=== PATIENT | female | born 1945 | race Caucasian/White ===

== ENCOUNTER → 2023-07-10 07:49 | Outpatient (CLI) | payer MEDICARE, SELFPAY ==
[2023-07-10 16:40] LABS: Basophils # 0.1 K/mm3 (0-0.2); Basophils % 0.6 % (0.1-2.0); Eosinophils # 0.1 K/mm3 (0.0-0.4); Eosinophils % 0.6 % (0.1-12.0); Hematocrit 43.9 % (37.0-47.0); Hemoglobin 14.1 g/dL (12.2-16.2); Lymphocytes # 1.5 K/mm3 (0.7-4.5); Lymphocytes % 18.1 % (10-50); Mean Corpuscular HGB Conc 32.1 g/dL (31.8-35.4); Mean Corpuscular Hemoglobin 30.8 pg (27.0-31.2); Mean Platelet Volume 8.1 fl (7.4-10.4); Monocytes # 0.4 K/mm3 (0.1-1.0); Monocytes % 4.4 % (1.7-9.3); Neutrophils # 6.2 K/mm3 (1.8-7.8); Neutrophils % 76.3 % (37.0-80.0); Platelet Count 309 K/mm3 (142-424); Red Blood Count 4.58 M/mm3 (4.20-5.40); Red Cell Distribution Width 13.8 % (11.5-17.5); White Blood Count 8.1 K/mm3 (4.8-10.8)
[2023-07-10 16:43] LABS: Alanine Aminotransferase 11 U/L (12-78); Albumin Level 3.8 g/dl (3.5-5.0); Albumin/Globulin Ratio 1.4 (1.1-1.8); Alkaline Phosphatase 59 U/L (38-126); Anion Gap 11.5 mEq/L (5-15); Aspartate Amino Transferase 25 U/L (14-36); Bilirubin,Total 0.6 mg/dl (0.2-1.3); Blood Urea Nitrogen 18 mg/dl (7-17); Calcium 8.2 mg/dl (8.4-10.2); Carbon Dioxide 29 mmol/L (22.0-30.0); Chloride 100 mmol/L (98-107); Chol/HDL Ratio 4.2 (1-3.5); Cholesterol 195 mg/dl (140-200); Estimated Glomerular Filt Rate 81 ml/min (>60); GFR (African American) 97 ML/MIN (>60); Globulin 2.8 g/dL (1.3-3.2); Glucose 100 mg/dl (74-100); HDL Cholesterol 46 mg/dl (40-60); Potassium 4.5 mmoL/L (3.5-5.1); Sodium 136 mmol/L (136-145); Total Protein,Serum 6.6 g/dl (6.3-8.2); Triglycerides 94 mg/dl (30-150); VLDL Cholesterol 19 mg/dL (0-40)
[2023-07-10 16:54] LABS: Direct LDL Cholesterol 107.48 mg/dL (100-129)
[2023-07-10 17:13] LABS: Thyroid Stimulating Hormone 1.68 uIU/mL (0.465-4.68)
== END ==
PROVIDERS: PCP Family Medicine; Visit Provider Family Medicine
DX: Z13.6 Encounter for screening for cardiovascular disorders (principal); R53.83 Other fatigue
CPT/HCPCS: 80053; 80061; 84443; 85025

== ENCOUNTER → 2023-08-09 12:14 | Outpatient (CLI) | payer MEDICARE, SELFPAY ==
--- NOTE | 2023-08-09 12:18 | XR_ITS ---
FINAL REPORT CLINICAL HISTORY: low back pain and sciatica FINDINGS: LUMBAR SPINE Three views demonstrate no acute fracture. The disc spaces are well preserved. There is lumbar scoliosis convex to the right measuring 25 degrees. There is mild anterior osteophyte formation. There is no malalignment. IMPRESSION: Degenerative and chronic appearing findings. Reviewed, Interpreted and Dictated by Arnold Hilliard MD Transcribed by Cecy Morales Authenticated and [facility]
--- NOTE | 2023-08-09 12:18 | XR_ITS ---
FINAL REPORT CLINICAL HISTORY: dyspnea FINDINGS: TWO-VIEW CHEST The heart size is normal. The mediastinum is normal. The lungs are clear. There is no pneumothorax. There is a moderate hiatal hernia. There is 30 degrees thoracolumbar scoliosis convex to the right. IMPRESSION: No acute cardiopulmonary process. Reviewed, Interpreted and Dictated by Arnold Hilliard MD Transcribed by Cecy Morales Authenticated and . [facility]
[2023-08-09 13:14] LABS: Basophils % 0.5 % (0.1-2.0); Eosinophils % 0.1 % (0.1-12.0); Hematocrit 44.5 % (37.0-47.0); Hemoglobin 14.7 g/dL (12.2-16.2); Lymphocytes # 1.2 K/mm3 (0.7-4.5); Lymphocytes % 12.6 % (10-50); Mean Corpuscular HGB Conc 32.9 g/dL (31.8-35.4); Mean Corpuscular Hemoglobin 30.3 pg (27.0-31.2); Mean Corpuscular Volume 92.1 fl (81-99); Mean Platelet Volume 7.5 fl (7.4-10.4); Monocytes # 0.3 K/mm3 (0.1-1.0); Monocytes % 3.5 % (1.7-9.3); Neutrophils # 7.9 K/mm3 (1.8-7.8); Neutrophils % 83.4 % (37.0-80.0); Platelet Count 297 K/mm3 (142-424); Red Blood Count 4.84 M/mm3 (4.20-5.40); Red Cell Distribution Width 13.8 % (11.5-17.5); White Blood Count 9.4 K/mm3 (4.8-10.8)
[2023-08-09 13:35] LABS: Anion Gap 14.5 mEq/L (5-15); Blood Urea Nitrogen 25 mg/dl (7-17); Calcium 8.9 mg/dl (8.4-10.2); Carbon Dioxide 24 mmol/L (22.0-30.0); Chloride 101 mmol/L (98-107); Estimated Glomerular Filt Rate 69 ml/min (>60); GFR (African American) 84 ML/MIN (>60); Glucose 104 mg/dl (74-100); Potassium 4.5 mmoL/L (3.5-5.1); Sodium 135 mmol/L (136-145)
[2023-08-09 14:05] LABS: Thyroid Stimulating Hormone 1.74 uIU/mL (0.465-4.68)
== END ==
LOC: LAB 12:15
PROVIDERS: PCP Family Medicine; Visit Provider Family Medicine
DX: M54.50 Low back pain, unspecified (principal); M79.606 Pain in leg, unspecified; R00.0 Tachycardia, unspecified
CPT/HCPCS: 36415; 71046; 72100; 80048; 84443; 85025

== ENCOUNTER → 2023-08-10 08:25 | Outpatient (CLI) | payer MEDICARE, SELFPAY | LOC: LAB.DROPOF 08-11 08:26 | PROVIDERS: PCP Family Medicine; Visit Provider Family Medicine | DX: R53.1 Weakness (principal) | CPT/HCPCS: 87086 ==

== ENCOUNTER 2023-08-20 14:35 | Emergency (ER) | payer MEDICARE, SELFPAY ==
[2023-08-20 14:40] VITALS: BP 207/106; PULSE 75; RESP 18; TEMP 36.7; O2SAT 97; BMI 20.2
--- NOTE | 2023-08-20 14:48 | CT_ITS ---
FINAL REPORT CLINICAL HISTORY: fall, hematoma r occiput, r/o intracranial FINDINGS: Axial images of the head were obtained without contrast. Coronal reformatted images were also obtained. This study was performed with techniques to keep radiation doses as low as reasonably achievable (ALARA). Individualized dose reduction techniques using automated exposure control or adjustment of mA and/or kV according to the patient''s size were employed. There is generalized age-appropriate atrophy. Periventricular low-attenuation areas are seen consistent with mild chronic ischemic changes. There is no evidence of intracranial hemorrhage or mass. There is no evidence of acute infarct. There is no evidence of shift of the midline structures. There is a right occipital scalp hematoma. No skull abnormality is seen on the bone window images. IMPRESSION: Atrophy and mild periventricular chronic ischemic changes. No acute intracranial abnormality identified. Reviewed, Interpreted and Dictated by Reed Thomas III, MD Transcribed by Yue Manuel Authenticated and [facility]
--- NOTE | 2023-08-20 14:48 | CT_ITS ---
PROCEDURE INFORMATION: Exam: CT Cervical Spine Without Contrast Exam date and time: 08/20/2023 3:33 PM Age: 78 years old Clinical indication: Injury or trauma; Fall; Blunt trauma; Additional info: Fall, R sided neck pain TECHNIQUE: Imaging protocol: Computed tomography of the cervical spine without contrast. Radiation optimization: All CT scans at this facility use at least one of these dose optimization techniques: automated exposure control; mA and/or kV adjustment per patient size (includes targeted exams where dose is matched to clinical indication); or iterative reconstruction. COMPARISON: 1. CT HEAD/BRAIN WO CON 08/20/2023 3:33 PM 2. CR XR CHEST 2V 08/09/2023 12:51 PM FINDINGS: Bones/joints: The cervical spine shows relatively significantly exaggerated lordosis without evidence for subluxation. However, age-related degenerative changes are observed, including mild disc space narrowing and osteophyte formation at multiple levels. These findings are consistent with age related degenerative disease. No underlying osseous injury is identified. Lungs: Calcified granulomas are noted at the right lung apex. Soft tissues: There is moderate soft tissue swelling over over the right occiput with a small locules subcutaneous gas. IMPRESSION: Multilevel degenerative change without acute injury identified.
--- NOTE | 2023-08-20 15:25 | ED_ITS ---
Discharge Plan Disposition Patient Disposition: Home, Self-Care Prescriptions Prescriptions: No Action duloxetine 60 mg capsule,delayed release(DR/EC) 60 mg PO DAILY gabapentin 600 mg tablet 600 mg PO QID Patient Comments: TAKE 1 TABLET BY MOUTH 4 TIMES DAILY Referrals Follow up/Referrals: Nate Espinosa MD [Primary Care Provider] - See instructions Activity Restrictions/Add. Instructions Additional Instructions/Restrictions: Please follow-up with your primary care provider. You will need to have your gosia removed in approximately 7 days. Monitor for signs of infection. Please return to the emergency department if you develop any new or worsening symptoms or become concerned for your health. Clinical Impressions Clinical Impression: Fall, Acute head trauma Discharge ED Provider: Mickey Wilcox General Adult HPI <Mickey Wilcox MD - Last Filed: 08/20/23 15:28> General Chief complaint: Fall Stated complaint: AO 08/20/23 FELL HIT HEAD Time Seen by Provider: 08/20/23 14:38 Mode of Arrival: Wheelchair Source of Information: Patient and Relative Limitations: No Limitations Description of Symptoms (Recalled from ER Triage Doc. by RN): Pt. states she fell backwards while making lunch today at her home. She hit her head on a jar that was on the ground. She states she did not lose consciousness. She called her daughter who came and got her and took her to her PCP and he sent her to the ED. History of Present Illness HPI narrative: 78-year-old female history of hypertension and neuropathy presenting with fall. Patient states that just for arrival, she fell after tripping and losing her balance, hit the back of her head. No loss of conscious patient having neck and back pain. No neurologic deficits. Has a large knot on the back of her head, but no other complaints other than pain at the site. No anticoagulation Related Data Home Medications Medication Instructions Recorded Confirmed duloxetine 60 mg capsule,delayed 60 mg PO DAILY neuropathy 11/20/22 08/20/23 release gabapentin 600 mg tablet 600 mg PO QID neuropathy 11/20/22 08/20/23 Allergies Allergy/AdvReac Type Severity Reaction Status Date / Time codeine AdvReac vomiting Verified 08/20/23 15:06 PFSH <Mickey Wilcox MD - Last Filed: 08/20/23 15:28> [facility] Disclaimer: The information contained in this section may have been updated after the patient was seen, as this information can be updated by other users. Medical History Neuropathy Surgical History History of ankle surgery Hx of cataract surgery Family History Mother Coronary artery disease Grandmother Cancer Social History Smoking Status: Never smoker alcohol intake: never substance use type: denies use current occupational status: retired Travel in the last 8 weeks: None household members: none <Mickey Wilcox MD - Last Filed: 08/20/23 15:28> ROS Obtained: Yes All systems reviewed & no additional complaints except as documented Physical Exam <Mickey Wilcox MD - Last Filed: 08/20/23 15:28> General General appearance: alert and in no apparent distress Head Head exam: normocephalic and other (Large 4 cm hematoma on posterior/right aspect of occiput. Hemostatic at this time.) Eye Eye exam: Present normal appearance, PERRL and EOMI ENT ENT exam: Present mucous membranes moist and other Neck Neck exam: Present normal inspection, full ROM, trachea midline and tenderness (On the right side of the neck and the muscles, no midline tenderness) Respiratory Respiratory exam: Absent respiratory distress, wheezes, stridor, accessory muscle use or prolonged expiratory phase Cardiovascular Cardiovascular exam: Present normal rhythm Abdominal Exam Abdominal exam: Present soft; Absent distention, tenderness, guarding, rebound or rigidity Extremities Exam Extremities exam: Absent edema Neurological Exam Neurological exam: Present alert, oriented X3, CN II-XII intact and normal gait; Absent motor sensory deficit Skin Skin exam: Present warm and dry; Absent diaphoresis or erythema Medical Decision Making <Mickey Wilcox MD - Last Filed: 08/20/23 15:28> Medical Records Medical records reviewed: Yes I reviewed the patient's medical records. Jamel Inquiry Pt receiving controlled substance: No Jamel was queried for this patient: No Vital Signs: 08/20/23 14:40 Temperature 98.1 F Temperature Source Oral Pulse Rate [Right Brachial] 75 Respiratory Rate 18 Blood Pressure [Right Arm] 207/106 H Blood Pressure Mean [Right Arm] 139 Blood Pressure Source [Right Arm] Automatic Cuff Blood Pressure Position [Right Arm] Sitting 02 Sat by Pulse Oximetry 97 Oxygen Delivery Method Room Air Orders (Tests/Meds): ED MEDICATIONS Discontinued Medications Generic Name Dose Route Start Last Admin Trade Name Isidro PRN Reason Stop Dose Admin Ketorolac Tromethamine 15 mg 08/20/23 15:25 08/20/23 15:40 Ketorolac 30mg/Ml Vial IV 08/20/23 15:26 15 mg ONCE ONE Administration Morphine Sulfate 4 mg 08/20/23 15:25 08/20/23 15:40 Morphine 4mg/Ml Syringe IV 08/20/23 15:26 4 mg ONCE ONE Administration Ondansetron HCl 4 mg 08/20/23 15:26 08/20/23 15:40 Ondansetron 4mg/2ml Vial IV 08/20/23 15:27 4 mg ONCE ONE Administration ORDERS Category Date Time Status CT cervical spine wo con Stat Cat Scan 08/20/23 14:[address] head/brain wo con Stat Cat Scan 08/20/23 14:48 Completed Medical Decision Narrative: 78-year-old female history of hypertension and neuropathy presenting with fall. Patient states that just for arrival, she fell after tripping and losing her balance, hit the back of her head. No loss of conscious patient having neck and back pain. No neurologic deficits. Has a large knot on the back of her head, but no other complaints other than pain at the site. No anticoagulatio. History was obtained via conversation with patient. On arrival, patient hemodynamically stable, alert, oriented x4, appropriate, GCS 15, moving all extremities spontaneously, pupils equal and reactive to light. Full physical exam performed and significant for well-appearing woman in no acute distress, but is complaining of pain. She has a large hematoma on the right posterior aspect of her occiput. No midline spinal tenderness, right- sided spinal tenderness. Cut is largely hemostatic. Differential includes hematoma, fracture, intracranial hemorrhage, cervical spine injury, among others. Patient was given morphine/Zofran, Toradol for symptomatic management and correction of underlying abnormalities. Patient head and neck CT imaging was pending at time of handoff to oncoming physician. <Mendoza Mary MD - Last Filed: 08/20/23 17:43> Vital Signs: 08/20/23 14:40 Temperature 98.1 F Temperature Source Oral Pulse Rate [Right Brachial] 75 Respiratory Rate 18 Blood Pressure [Right Arm] 207/106 H Blood Pressure Mean [Right Arm] 139 Blood Pressure Source [Right Arm] Automatic Cuff Blood Pressure Position [Right Arm] Sitting 02 Sat by Pulse Oximetry 97 Oxygen Delivery Method Room Air Orders (Tests/Meds): ED MEDICATIONS Discontinued Medications Generic Name Dose Route Start Last Admin Trade Name Isidro PRN Reason Stop Dose Admin Ketorolac Tromethamine 15 mg 08/20/23 15:25 08/20/23 15:40 Ketorolac 30mg/Ml Vial IV 08/20/23 15:26 15 mg ONCE ONE Administration Morphine Sulfate 4 mg 08/20/23 15:25 08/20/23 15:40 Morphine 4mg/Ml Syringe IV 08/20/23 15:26 4 mg ONCE ONE Administration Ondansetron HCl 4 mg 08/20/23 15:26 08/20/23 15:40 Ondansetron 4mg/2ml Vial IV 08/20/23 15:27 4 mg ONCE ONE Administration ORDERS Category Date Time Status CT cervical spine wo con Stat Cat Scan 08/20/23 14:[address] head/brain wo con Stat Cat Scan 08/20/23 14:48 Completed Medical Decision Narrative: 78-year-old female history of hypertension and neuropathy presenting with fall. Patient states that just for arrival, she fell after tripping and losing her balance, hit the back of her head. No loss of conscious patient having neck and back pain. No neurologic deficits. Has a large knot on the back of her head, but no other complaints other than pain at the site. No anticoagulatio. History was obtained via conversation with patient. On arrival, patient hemodynamically stable, alert, oriented x4, appropriate, GCS 15, moving all extremities spontaneously, pupils equal and reactive to light. Full physical exam performed and significant for well-appearing woman in no acute distress, but is complaining of pain. She has a large hematoma on the right posterior aspect of her occiput. No midline spinal tenderness, right- sided spinal tenderness. Cut is largely hemostatic. Differential includes hematoma, fracture, intracranial hemorrhage, cervical spine injury, among others. Patient was given morphine/Zofran, Toradol for symptomatic management and correction of underlying abnormalities. Patient head and neck CT imaging was pending at time of handoff to oncoming physician. Usman CORDOVA: I assumed care of the patient at the time of handoff from the prior provider. On reassessment patient's blood pressure spontaneously improved. Patient remains stable. CT scan interpreted by me, show no evidence of acute intracranial bleeding or trauma, no evidence of cervical fracture. Patient's wounds were copiously irrigated. Small laceration noted. [place] were placed. She was given return precautions and instructions regarding wound care. Patient discharged in stable condition. <Mendoza Mary MD - Last Filed: 08/20/23 17:43> Laceration Laceration 1: Site: scalp (occiput) Size (cm): 1.5 Description: linear Depth: simple, single layer Skin layer closed with: other (gosia, 3) Critical Care <Mickey Wilcox MD - Last Filed: 08/20/23 15:28> Critical Care Time Critical Care Time: No
[2023-08-20] MEDS: MORPHINE 4MG/ML SYRINGE 4 MG IV (15:40)
[2023-08-20] MEDS: KETOROLAC 30MG/ML VIAL 15 MG IV (15:40)
[2023-08-20] MEDS: ONDANSETRON 4MG/2ML VIAL 4 MG IV (15:40)
[2023-08-20 17:56] VITALS: BP 140/78; PULSE 67; RESP 16; TEMP 36.7
== END 2023-08-20 17:58 | disposition home or self-care (01) ==
PROVIDERS: Emergency Provider Emergency Medicine; PCP Family Medicine
DX: R51.9 Headache, unspecified (principal); S01.01XA Laceration without foreign body of scalp, initial encounter; M54.2 Cervicalgia; W01.198A Fall on same level from slipping, tripping and stumbling with subsequent striking against other object, initial encounter
CPT/HCPCS: 12001; 70450; 72125; 96374; 96375; 99285; J2405

== ENCOUNTER 2024-01-24 17:59 | Emergency (ER) | payer MEDICARE, SELFPAY ==
--- NOTE | 2024-01-24 18:06 | ED_ITS ---
<Statement entered by Manuel Metz MD - 01/24/24 23:14> I was consulted by the LUCILA, and we discussed the complexity of the problems being addressed. I approved the treatment and management plan for this patient's care in the emergency department, thus performing a substantive portion of the medical decision making. Manuel Metz MD Discharge Plan Disposition Patient Disposition: Home, Self-Care Condition: Good Prescriptions Prescriptions: No Action duloxetine 60 mg capsule,delayed release(DR/EC) 60 mg PO DAILY gabapentin 600 mg tablet 600 mg PO QID Patient Comments: TAKE 1 TABLET BY MOUTH 4 TIMES DAILY Referrals Follow up/Referrals: Odilon Patel MD [Staff Physician] - See instructions Nate Espinosa MD [Primary Care Provider] - See instructions Activity Restrictions/Add. Instructions Additional Instructions/Restrictions: Please follow-up with your PCP within 1 week. Vascular surgery reports that they are going to contact you. Vascular surgery clinic at the [facility] has phone #[phone] return to ER for any worsening signs or symptoms as needed. Clinical Impressions Clinical Impression: Bilateral claudication of lower limb, Peripheral neuropathy, Paresthesia, Peripheral vascular disease Instructions Patient Instructions: DI for Peripheral Vascular (Arterial) Disease Discharge ED Provider: Manuel Metz General Adult HPI General Chief complaint: Extremity Problem,Nontraumatic Stated complaint: Bilateral leg numbness Time Seen by Provider: 01/24/24 18:03 History of Present Illness HPI narrative: Patient presents for bilateral lower extremity numbness. Patient has longstanding history of peripheral neuropathy in her feet. She has been following with neurology for approximately 12 years. She is currently on gabapentin for this. Patient states that she called her neurologist today after having 4 days of increasing numbness to the level of the knees and he told her there was nothing more he could do for her and that she needed to go to the the ER urgent treatment center for evaluation. Currently denies chest pain fever chills hemoptysis hematochezia melena nausea vomit diarrhea. She is a never smoker. Never been diagnosed with peripheral vascular disease and has her toes but is on no other chronic medication except duloxetine Related Data Home Medications Medication Instructions Recorded Confirmed duloxetine 60 mg capsule,delayed 60 mg PO DAILY neuropathy 11/20/22 08/28/23 release gabapentin 600 mg tablet 600 mg PO QID neuropathy 11/20/22 08/28/23 Allergies Allergy/AdvReac Type Severity Reaction Status Date / Time codeine AdvReac vomiting Verified 08/28/23 16:10 [facility] Disclaimer: The information contained in this section may have been updated after the patient was seen, as this information can be updated by other users. Medical History Neuropathy Surgical History History of ankle surgery Hx of cataract surgery Family History Mother Coronary artery disease Grandmother Cancer Social History Smoking Status: Never smoker alcohol intake: never substance use type: denies use current occupational status: retired Travel in the last 8 weeks: None household members: none ROS Obtained: Yes Systems reviewed as appropriate & no additional complaints except as documented Physical Exam General General appearance: alert and in no apparent distress Respiratory Respiratory exam: Present normal lung sounds bilaterally Cardiovascular Cardiovascular exam: Present regular rate and normal rhythm Extremities Exam Extremities exam: Present other (Patient has bilateral paresthesias from the knees down. Patient has very cool feet with delayed capillary refill in the bilateral lower extremities from the ankles down. She has palpable DPs bilaterally she has intact motor and sensory but diminished 2-point discrimination.) Neurological Exam Neurological exam: Present alert and oriented X3 Medical Decision Making Medical Records Medical records reviewed: Yes I reviewed the patient's medical records. Jamel Inquiry Pt receiving controlled substance: No Vital Signs: 01/24/24 18:09 01/24/24 18:13 01/24/24 18:30 Temperature 97.4 F L Temperature Source Oral Pulse Rate 74 69 Pulse Rate [Right] 74 Respiratory Rate 16 Blood Pressure 145/80 H 140/80 Blood Pressure [Right Arm] 145/80 H Blood Pressure Mean [Right Arm] 101 Blood Pressure Source [Right Arm] Automatic Cuff Blood Pressure Position [Right Arm] Sitting 02 Sat by Pulse Oximetry 96 96 96 Oxygen Delivery Method Room Air 01/24/24 19:00 Temperature Temperature Source Pulse Rate 66 Pulse Rate [Right] Respiratory Rate Blood Pressure 140/73 Blood Pressure [Right Arm] Blood Pressure Mean [Right Arm] Blood Pressure Source [Right Arm] Blood Pressure Position [Right Arm] 02 Sat by Pulse Oximetry 97 Oxygen Delivery Method Lab Data Lab results reviewed: Yes I reviewed the patient's lab results. Lab Results 01/24/24 18:37: WBC 7.4, RBC 4.29, Hgb 12.9, Hct 42.4, MCV 99.0, MCH 30.2, MCHC 30.5 L, RDW 14.5, Plt Count 308, MPV 7.6, Neut % (Auto) 68.8, Lymph % (Auto) 24.4, [place] % (Auto) 5.1, Eos % (Auto) 0.8, Baso % (Auto) 1.0, Neut # (Auto) 5.1, Lymph # (Auto) 1.8, [place] # (Auto) 0.4, Eos # (Auto) 0.1, Baso # (Auto) 0.1, PT 10.6, INR 0.98, Sodium 139, Potassium 4.4, Chloride 105, Carbon Dioxide 27, Anion Gap 11.4, BUN 24 H, Creatinine 0.90, Estimated Creat Clear 35, Estimated GFR 60, Est GFR ( Amer) 73, Glucose 91, Lactate 1.0, Calcium 8.8, M agnesium 2.4 H, Total Bilirubin 0.3, AST 24, ALT 13, Alkaline Phosphatase 67, Total Creatine Kinase 38, Total Protein 6.4, Albumin 3.8, Globulin 2.6, Albumin/Globulin Ratio 1.5 01/24/24 18:37 01/24/24 18:37 Orders (Tests/Meds): ED MEDICATIONS Discontinued Medications Generic Name Dose Route Start Last Admin Trade Name Isidro PRN Reason Stop Dose Admin Acetaminophen 1,000 mg 01/24/24 18:21 01/24/24 18:47 Acetaminophen 1,000mg/100ml Vial IV 01/24/24 18:22 1,000 mg ONCE ONE Administration Dicyclomine HCl 10 mg 01/24/24 19:44 01/24/24 19:54 Dicyclomine 10mg Capsule PO 01/24/24 19:45 10 mg ONCE ONE Administration Lactated Ringer's 1,000 mls @ 999 mls/hr 01/24/24 18:21 01/24/24 18:47 Lactated Ringer's 1000 Ml Bag IV 01/24/24 19:21 999 mls/hr .Q1H1M ONE Administration Iopamidol 120 ml 01/24/24 19:38 01/24/24 19:40 Iopamidol-370 (76%);100ml Bottle IV 01/24/24 19:39 120 ml ONCE ONE Administration Ketorolac Tromethamine 15 mg 01/24/24 18:21 01/24/24 18:47 Ketorolac 30mg/Ml Vial IV 01/24/24 18:22 15 mg ONCE ONE Administration Methocarbamol 500 mg 01/24/24 21:00 Methocarbamol 500mg Tablet PO 02/23/24 20:59 BID GABRIELLE Methocarbamol 500 mg 01/24/24 19:56 01/24/24 19:57 Methocarbamol 500mg Tablet PO 01/24/24 19:57 500 mg BID ONE Administration Methocarbamol 500 mg 01/24/24 19:56 01/24/24 20:32 Methocarbamol 500mg Tablet PO 01/24/24 19:57 Not Given ONCE ONE Sodium Chloride 50 ml 01/24/24 19:38 01/24/24 19:40 0.9 % Sodium Chloride 50 Ml Vial IV 01/24/24 19:39 50 ml ONCE ONE Administration Sodium Chloride 10 ml 01/24/24 19:38 01/24/24 19:40 Sodium Chloride 0.9% 10ml Syr (Rad Only) IV 01/24/24 19:39 10 ml ONCE ONE Administration ORDERS Category Date Time Status CT angio abdomen/femoral Stat Cat Scan 01/24/24 18:21 Completed CBC w/Auto Diff [Complete Blood Count Auto Diff] Stat Lab 01/24/24 18:37 Completed CK [Creatine Kinase] Stat Lab 01/24/24 18:37 Completed CMP [Comprehensive Metabolic Panel] Stat Lab 01/24/24 18:37 Completed INR [Prothrombin Time INR] Stat Lab 01/24/24 18:37 Completed Lactic Acid Stat Lab 01/24/24 18:37 Completed Magnesium Stat Lab 01/24/24 18:37 Completed Medical Decision Narrative: In summary patient is a 78-year-old female who presents to the emergency department for evaluation of paresthesia and pain of the bilateral lower extremities from the knee down. Patient is [hemodynamically stable/unstable] upon arrival, afebrile. Physical exam is remarkable for paresthesias from the knees down the bilateral lower extremities. Patient does have intact motor and sensory but diminished 2 point discrimination. Patient has decreased peripheral vascular flow from the ankles down with delayed capillary refill and the skin is very cool to touch. However her DPs are both palpable bilaterally.. Differential diagnosis includes peripheral vascular disease versus worsening peripheral neuropathy versus large vessel thrombus etc. Initial workup will be conducted with hematologic labs CTA of aorta runoff. Initial interventions include crystalloid bolus Toradol Tylenol. Initial workup reviewed by me shows that her hematologic labs are nonactionable. My informal interpretation of her CTA aorta with runoff prior to radiology read is significant stenosis versus occlusion of the bilateral anterior and posterior tibial arteries with possible read constitution at the ankle. Upon repeat evaluation some resolution of her pain. Given this I had an interactive discussion with vascular surgery at the [facility] Dr. Tee about patient management. And and I agreed that patient likely would benefit from vascular surgery consultation in the outpatient setting as she has no critical findings today. Thus patient will be seen in a week to 10 days in the vascular surgery clinic. Reportedly the vascular surgery clinic will contact the patient. Given this I had interactive discussion with the patient regarding her findings and her referrals. Patient verbalized understanding and agreement. Critical Care Critical Care Time Critical Care Time: No
[2024-01-24 18:09] VITALS: BP 145/80; PULSE 74; O2SAT 96
[2024-01-24 18:13] VITALS: BP 145/80; PULSE 74; RESP 16; TEMP 36.3; O2SAT 96; BMI 20.4
--- NOTE | 2024-01-24 18:18 | PC.NURSE ---
in room talking with patient at this time.
--- NOTE | 2024-01-24 18:21 | CT_ITS ---
PROCEDURE INFORMATION: Exam: CTA Abdominal Aorta and Bilateral Lower Extremities (Run-off) With Contrast Exam date and time: 01/24/2024 7:31 PM Age: 78 years old Clinical indication: Discoloration or erythema and numbness; Foot and lower extremity; Bilateral; Additional info: Cold foot TECHNIQUE: Imaging protocol: Computed tomographic angiography of the of the abdominal aorta, pelvis and bilateral lower extremities with contrast. 3D rendering (Not supervised by radiologist): MIP and/or 3D reconstructed images were created by the technologist. Radiation optimization: All CT scans at this facility use at least one of these dose optimization techniques: automated exposure control; mA and/or kV adjustment per patient size (includes targeted exams where dose is matched to clinical indication); or iterative reconstruction. Contrast material: ISOVUE; Contrast volume: 120 ml; Contrast route: INTRAVENOUS (IV); COMPARISON: CR XR CHEST 2V 09/08/2023 12:51 FINDINGS: Aorta: No aortic aneurysm. No aortic dissection. 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 Renal arteries: Incidental note is made that there are 2 right renal arteries. Right iliac arteries: No occlusion or significant stenosis. Right femoral/popliteal arteries: [id number] stenoses of the right popliteal artery. Widespread atherosclerotic disease of the right superficial femoral artery producing many mild stenoses. Right infrapopliteal arteries: Stenosis of the proximal right anterior tibial artery on image 95 series 6 is severe. The right posterior tibial artery is occluded proximally with possible reconstitution of a short segment at the ankle. Left iliac arteries: No occlusion or significant stenosis. Left femoral/popliteal arteries: Mild stenoses of the left popliteal artery. Widespread atherosclerotic disease of the left superficial femoral artery producing many mild stenoses. Left infrapopliteal arteries: The left posterior tibial artery loses opacification in the mid to lower calf, likely occluded. The left anterior tibial artery is occluded versus nearly occluded in the distal calf with reconstitution of the dorsalis pedis artery. The left peroneal artery is patent to the foot. Other arteries: The right frontal artery is patent to the foot. Lungs: Mild scarring and atelectasis in the lower lungs. Liver: No mass. Gallbladder and bile ducts: Unremarkable. No calcified stones. No ductal dilation. Pancreas: Unremarkable. No mass. No ductal dilation. Spleen: Normal. No splenomegaly. Adrenal glands: Normal. No mass. Kidneys and ureters: Moderate right renal atrophy and scarring. Stomach and bowel: Large hiatal hernia containing the stomach. Appendix: Unremarkable appendix. Urinary bladder: Mild nonspecific urinary bladder wall thickening. Reproductive: Uterine fibroids. Intraperitoneal space: Unremarkable. No free air. No significant fluid collection. Lymph nodes: No lymphadenopathy. Bones/joints: The lumbar spine demonstrates mild degenerative changes at multiple levels. Postsurgical changes of the distal right tibia and fibula. Hardware appears intact. Soft tissues: Unremarkable. Other findings: Stigmata of old granulomatous disease. IMPRESSION: 1. There are at least flow-limiting stenoses, possibly occlusions, of the left anterior and posterior tibial arteries. 2. Stenosis of the proximal right anterior tibial artery on image 95 series 6 is severe. The right posterior tibial artery is occluded proximally with possible reconstitution of a short segment at the ankle. 3. Mild nonspecific urinary bladder wall thickening. Please exclude infection.
[2024-01-24 18:30] VITALS: BP 140/80; PULSE 69; O2SAT 96
[2024-01-24] MEDS: ACETAMINOPHEN 1,000MG/100ML VIAL 1000 MG IV (18:47)
[2024-01-24] MEDS: LACTATED RINGERS 1000ML 1,000 ML 999 ML IV (18:47)
[2024-01-24] MEDS: KETOROLAC 30MG/ML VIAL 15 MG IV (18:47)
[2024-01-24 18:56] LABS: Basophils # 0.1 K/mm3 (0-0.2); Eosinophils # 0.1 K/mm3 (0.0-0.4); Eosinophils % 0.8 % (0.1-12.0); Hematocrit 42.4 % (37.0-47.0); Hemoglobin 12.9 g/dL (12.2-16.2); Lymphocytes # 1.8 K/mm3 (0.7-4.5); Lymphocytes % 24.4 % (10-50); Mean Corpuscular HGB Conc 30.5 g/dL (31.8-35.4); Mean Corpuscular Hemoglobin 30.2 pg (27.0-31.2); Mean Platelet Volume 7.6 fl (7.4-10.4); Monocytes # 0.4 K/mm3 (0.1-1.0); Monocytes % 5.1 % (1.7-9.3); Neutrophils # 5.1 K/mm3 (1.8-7.8); Neutrophils % 68.8 % (37.0-80.0); Platelet Count 308 K/mm3 (142-424); Red Blood Count 4.29 M/mm3 (4.20-5.40); Red Cell Distribution Width 14.5 % (11.5-17.5); White Blood Count 7.4 K/mm3 (4.8-10.8)
[2024-01-24 19:00] VITALS: BP 140/73; PULSE 66; O2SAT 97
[2024-01-24 19:05] LABS: Chloride 105 mmol/L (98-107); Potassium 4.4 mmoL/L (3.5-5.1); Sodium 139 mmol/L (136-145)
[2024-01-24 19:07] LABS: Creatine Kinase 38 U/L (30-135); INR 0.98 (0.9-1.1); Prothrombin Time 10.6 seconds (10.1-12.5)
[2024-01-24 19:08] LABS: Alanine Aminotransferase 13 U/L (12-78); Albumin Level 3.8 g/dl (3.5-5.0); Albumin/Globulin Ratio 1.5 (1.1-1.8); Alkaline Phosphatase 67 U/L (38-126); Anion Gap 11.4 mEq/L (5-15); Aspartate Amino Transferase 24 U/L (14-36); Bilirubin,Total 0.3 mg/dl (0.2-1.3); Blood Urea Nitrogen 24 mg/dl (7-17); Calcium 8.8 mg/dl (8.4-10.2); Carbon Dioxide 27 mmol/L (22.0-30.0); Creatinine Clearance Estimated 35 mL/min (50-200); Estimated Glomerular Filt Rate 60 ml/min (>60); GFR (African American) 73 ML/MIN (>60); Globulin 2.6 g/dL (1.3-3.2); Glucose 91 mg/dl (74-100); Magnesium 2.4 mg/dl (1.6-2.3); Total Protein,Serum 6.4 g/dl (6.3-8.2)
--- NOTE | 2024-01-24 19:26 | PC.NURSE ---
patient to radiology
[2024-01-24] MEDS: 0.9 % SODIUM CHLORIDE 50 ML VIAL IV (19:40)
[2024-01-24] MEDS: SODIUM CHLORIDE 0.9% 10ML SYR (RAD ONLY) 10 ML IV (19:40)
[2024-01-24] MEDS: IOPAMIDOL-370 (76%);100ML BOTTLE 120 ML IV (19:40)
[2024-01-24] MEDS: DICYCLOMINE 10MG CAPSULE 10 MG PO (19:54)
[2024-01-24] MEDS: METHOCARBAMOL 500MG TABLET 500 MG PO (19:57)
--- NOTE | 2024-01-24 20:34 | PC.NURSE ---
assisted patient to the restroom and back to her bed placed back on monitor.
--- NOTE | 2024-01-24 20:52 | PC.NURSE ---
Contacted [facility] to request consult for vascular.
--- NOTE | 2024-01-24 21:56 | PC.NURSE ---
Provided requested patient information to transfer center.
[2024-01-24 22:09] VITALS: BP 144/68; PULSE 57; RESP 18; TEMP 36.4; O2SAT 98
== END 2024-01-24 22:20 | disposition home or self-care (01) ==
PROVIDERS: Physician Assistant; Emergency Provider Emergency Medicine; PCP Family Medicine
DX: G62.9 Polyneuropathy, unspecified (principal); R20.2 Paresthesia of skin; I73.9 Peripheral vascular disease, unspecified
CPT/HCPCS: 75635; 80053; 82550; 83605; 83735; 85025; 85610; 96361; 96374; 96375; 99284; J0131; J1885; J7120; Q9967

== ENCOUNTER 2024-05-25 19:12 | Emergency (ER) | payer MEDICARE, SELFPAY ==
[2024-05-25 19:14] VITALS: BP 162/89; PULSE 96; RESP 20; TEMP 36.6; O2SAT 97; BMI 22.8
[2024-05-25 19:22] VITALS: BP 162/89; PULSE 100; RESP 20; O2SAT 94
[2024-05-25 19:30] VITALS: BP 132/85; PULSE 101; RESP 20; O2SAT 94
--- NOTE | 2024-05-25 19:30 | ECG_ITS ---
APPROVED REPORT Exam: Resting ECG HR:95 bpm ECG Measurements Heart Rate 95 AXES TN 124 P -16 QRSd 89 QRS 86 QT 324 T -55 QTc 376 Conclusion Sinus rhythm T wave inversions without reciprocal change Electronically signed by : BLAISE CANELA, 05/25/2024 21:01:53
--- NOTE | 2024-05-25 19:48 | XR_ITS ---
PROCEDURE INFORMATION: Exam: XR Chest Exam date and time: 05/25/2024 7:47 PM Age: 78 years old Clinical indication: Shortness of breath; Additional info: Exertional SOA TECHNIQUE: Imaging protocol: Radiologic exam of the chest. Views: 1 view. COMPARISON: CR XR CHEST 2V 08/09/2023 12:51 PM FINDINGS: Lungs: Mild bibasilar atelectasis. No consolidation or edema. Right lung apex calcified granuloma. Pleural spaces: Normal. No pleural effusion. No pneumothorax. Heart/Mediastinum: Large hiatal hernia. Vasculature: Mildly atherosclerotic thoracic aorta. Bones/joints: Lumbar spine dextroscoliosis. IMPRESSION: No acute findings.
[2024-05-25 20:00] VITALS: BP 132/92; PULSE 92; RESP 20; O2SAT 97
--- NOTE | 2024-05-25 20:01 | ED_ITS ---
Discharge Plan Disposition Patient Disposition: Home, Self-Care Chief Complaint: Shortness of Breath/Dyspnea Prescriptions Prescriptions: No Action duloxetine 60 mg capsule,delayed release(DR/EC) 60 mg PO DAILY gabapentin 600 mg tablet 600 mg PO QID Patient Comments: TAKE 1 TABLET BY MOUTH 4 TIMES DAILY Paxlovid 300 mg (150 mg x 2)-100 mg tablets,dose pack See Rx Instructions PO .COMPLEX Qty: 30 0RF Rx Instructions: take TWO 150 mg tablets of nirmatrelvir with ONE 100 mg tablet of ritonavir twice daily for 5 days PO Referrals Follow up/Referrals: Nate Espinosa MD [Primary Care Provider] - See instructions Rm Menjivar MD [Staff Physician] - See instructions Activity Restrictions/Add. Instructions Additional Instructions/Restrictions: Call your family doctor to establish care for this visit to the emergency department and schedule follow-up within 48 hours to ensure improvement. If you have any worsening of your condition or any other concerning signs or symptoms, return to the emergency department or your primary care doctor for further evaluation. Follow-up with cardiology regarding this visit to the emergency department and need for stress testing and further cardiac workup. Clinical Impressions Clinical Impression: Exertional dyspnea Print Language Print Language: Georgian Discharge ED Provider: Mickey Wilcox [facility] General Chief Complaint: Shortness of Breath/Dyspnea Stated Complaint: heavy breathing,confused Time Seen by Provider: 05/25/24 19:32 Mode of Arrival: Wheelchair Source of Information: Patient Limitations: Physical Limitations Description of Symptoms (Recalled from ER Triage Doc. by RN): Patient presents to ER with general illness complaints. Daughter states patient is having some confusion and is breathing hard. Patient is AOX4 at this time. History of Present Illness HPI narrative: Please note that above description of symptoms, in this electronic medical record under categorization of recalled from ER triage doctor by RN are reflective of an initial nursing assessment, however, is not reflective of my full history and physical exam that was personally taken and clarified. Consequentially, this preceding description of symptoms, which may include the patient's categorized chief complaint in the EMR, do not reflect my personal clinical impression, and the ultimate description of history of present illness and patient stated complaints should be deferred to this section of the note. Unless stated otherwise or congruent with this section of the note, additional signs, symptoms, or incongruence should be interpreted as inaccurate with my clinical impression. Related Data Home Medications ?Medication ?Instructions ?Recorded ?Confirmed duloxetine 60 mg capsule,delayed 60 mg PO DAILY neuropathy 11/20/22 08/28/23 release gabapentin 600 mg tablet 600 mg PO QID neuropathy 11/20/22 08/28/23 Previous Rx's ?Medication ?Instructions ?Recorded nirmatrelvir 300 mg (150 mg See Rx Instructions PO .COMPLEX 04/21/24 x2)-ritonavir 100 mg tablet,dose #30 tabs pack (Paxlovid) Allergies Allergy/AdvReac Type Severity Reaction Status Date / Time codeine AdvReac vomiting Verified 08/28/23 16:10 [facility] Disclaimer: The information contained in this section may have been updated after the patient was seen, as this information can be updated by other users. Medical History Neuropathy Surgical History History of ankle surgery Hx of cataract surgery Family History Mother Coronary artery disease Grandmother Cancer Social History Smoking Status: Never smoker alcohol intake: never substance use type: denies use current occupational status: retired Travel in the last 8 weeks: None household members: none Other Medical History Have you received the Pneumonia Vaccine: Yes ROS Obtained: Yes All systems reviewed & no additional complaints except as documented Physical Exam General General appearance: alert and in no apparent distress Neck Neck exam: Present trachea midline Chest Chest inspection: Present normal inspection and symmetric chest wall rise Respiratory Respiratory exam: Present normal lung sounds bilaterally; Absent respiratory distress, wheezes, stridor, accessory muscle use or prolonged expiratory phase Cardiovascular Cardiovascular exam: Present normal rhythm, tachycardia and other (Pulses equal and symmetric in upper and lower extremities) Extremities Exam Extremities exam: Absent edema Neurological Exam Neurological exam: Present alert, oriented X3, CN II-XII intact and normal gait; Absent motor sensory deficit Skin Skin exam: Present warm and dry; Absent cyanosis, diaphoresis or pallor HEART Score HEART Score HEART Score assessment performed?: Yes History (anamnesis): Moderately suspicious ECG: Non-specific disturbance Age: >65 years Risk factors: No known risk factors Troponin: </= normal limit HEART Score: 4 Critical Care Critical Care Time Critical Care Time: No Medical Decision Making Medical Records Medical records reviewed: Yes I reviewed the patient's medical records. Jamel Inquiry Pt receiving controlled substance: No Jamel was queried for this patient: No Vital Signs Vital Signs: 05/25/24 19:14 05/25/24 19:22 05/25/24 19:30 Temperature 97.9 F Temperature Source Oral Pulse Rate 100 H 101 H Pulse Rate [Right Radial] 96 H Respiratory Rate 20 20 20 Blood Pressure 162/89 H 132/85 Blood Pressure [Right Arm] 162/89 H Blood Pressure Mean [Right Arm] 113 Blood Pressure Source [Right Arm] Automatic Cuff Blood Pressure Position [Right Arm] Supine 02 Sat by Pulse Oximetry 97 94 L 94 L Oxygen Delivery Method Room Air 05/25/24 20:00 05/25/24 20:30 Temperature Temperature Source Pulse Rate 92 H 84 Pulse Rate [Right Radial] Respiratory Rate 20 15 Blood Pressure 132/92 H 139/82 Blood Pressure [Right Arm] Blood Pressure Mean [Right Arm] Blood Pressure Source [Right Arm] Blood Pressure Position [Right Arm] 02 Sat by Pulse Oximetry 97 98 Oxygen Delivery Method Lab Data Labs: Lab Results 05/25/24 19:27: WBC 10.8, RBC 5.05, Hgb 15.3, Hct 46.6, MCV 92.3, MCH 30.3, MCHC 32.9, RDW 14.4, Plt Count 288, MPV 7.4, Neut % (Auto) 78.8, Lymph % (Auto) 15.0, Calvert % (Auto) 4.6, Eos % (Auto) 0.3, Baso % (Auto) 1.3, Neut # (Auto) 8.5 H, Lymph # (Auto) 1.6, Calvert # (Auto) 0.5, Eos # (Auto) 0.0, Baso # (Auto) 0.1, PT 10.8, INR 0.96, APTT 26.8, D-Dimer 0.43, Sodium 139, Potassium 3.9, Chloride 105, Carbon Dioxide 25, Anion Gap 12.9, BUN 22 H, Creatinine 0.80, Estimated Creat Clear 38, Estimated GFR 69, Est GFR ( Amer) 84, Glucose 126 H, Calcium 9.9, Total Bilirubin 1.0, AST 27, ALT 20, Alkaline Phosphatase 62, Troponin I < 0.01, NT-Pro-B Natriuret Pep 150, Total Protein 7.3, Albumin 4.4, Globulin 2.9, Albumin/Globulin Ratio 1.5 05/25/24 20:13: VBG pH 7.39, VBG pCO2 39.2, VBG pO2 29.5, VBG HCO3 23.3, VBG Total CO2 24.5, VBG O2 Saturation 56.1, VBG Base Excess -1.7, VBG Lactic Acid 1.6 05/25/24 19:27 05/25/24 19:27 Response Orders (Tests/Meds): ED MEDICATIONS Discontinued Medications Generic Name Dose Route Start Last Admin Trade Name Freq PRN Reason Stop Dose Admin Aspirin 324 mg 05/25/24 19:48 05/25/24 20:02 Aspirin 81mg Chewable Tablet PO 05/25/24 19:49 324 mg ONCE ONE Administration ORDERS Category Date Time Status XR chest portable Stat Exams 05/25/24 19:48 Taken Complete Blood Count Auto Diff Stat Lab 05/25/24 19:27 Completed Comprehensive Metabolic Panel Stat Lab 05/25/24 19:27 Completed D-Dimer Stat Lab 05/25/24 19:27 Completed HIV (1&2) Antibody Rapid Stat Lab 05/25/24 19:27 Received Hep C Ab with Reflex to RNA Stat Lab 05/25/24 19:27 Received NT Pro Brain Natriuretic Pep. Stat Lab 05/25/24 19:27 Completed PT INR [Prothrombin Time INR] Stat Lab 05/25/24 19:27 Completed PTT [Activated Partial Thrombo Time] Stat Lab 05/25/24 19:27 Completed Troponin I Q3H Lab 05/25/24 23:00 Ordered Troponin I Q3H Lab 05/26/24 02:00 Ordered Troponin I Stat Lab 05/25/24 19:27 Completed Urinalysis and Microscopic Stat Lab 05/25/24 19:48 Ordered Venous Blood Gas Stat RT 05/25/24 20:13 Completed MDM Narrative Medical Decision Narrative: This is an 78-year-old female history of neuropathy on gabapentin presenting with exertional shortness of breath. Patient states that she has felt short of breath for the past 24 hours or so. Exertion, walking makes it worse. Resting makes it better. No chest pain, nausea, vomiting, diaphoresis, lower extremity swelling, cough, fevers or chills, or any other associated symptoms. Did not actually want to come to the emergency department, she came at the behest of her daughter who accompanies her. Daughter states that she seems winded with minimal exertion that is not normally her, she has been wanting to rest, sleep more and usually her mother, the patient, is always up and going, so this is abnormal. History was obtained via conversation with patient and daughter. On arrival, patient hemodynamically stable, alert, oriented x4, appropriate, GCS 15, moving all extremities spontaneously, pupils equal and reactive to light. Full physical exam performed and significant for very pleasant 78-year-old female who is in no acute distress. Not currently complaining of any symptoms. Cardiac exam within normal limits with no murmurs gallops rubs, no lower extremity edema. Pulses are equal and symmetric in upper and lower extremities. Lungs are clear to auscultation anterior and posterior bilaterally. No focal breath sounds. Patient is tachycardic but otherwise normal.. Differential includes ACS, DE, PE, CHF, pneumothorax, pneumonia, hiatal hernia, among others. Patient was given 324 mg aspirin for symptomatic management and correction of underlying abnormalities. Patient placed on continuous cardiac monitoring and continuous pulse ox with initial blood pressure 162/89, heart rate 96, saturation 97% on room air. Independent interpretation of EKG shows sinus rhythm 95 bpm. Q waves in septal leads. T wave inversions in lateral leads with no reciprocal change. MA 124, QRS 89, QTc 376. Normal axis. Workup independently interpreted and significant for nonactionable CBC, chemistry. Negative troponin, BNP, and D-dimer. On independent interpretation of imaging, no acute cardiopulmonary airspace disease on chest x-ray. See radiology read for full review of final results. Heart score 4. On reevaluation, patient still resting comfortably ready to go, asking for discharge paperwork. I feel this is appropriate. It was explained that this could still be cardiac in nature, she needs to follow-up with cardiology for definitive stress testing and cardiology workup. She is agreeable to this. Given patient presentation, workup, history, this most likely represents exertional dyspnea, potentially atypical presentation of angina. Because patient at baseline without signs or symptoms of clinical decompensation, deemed appropriate for discharge. Results were relayed to patient who voiced understanding and were agreeable to outpatient management and follow up. I discussed my clinical impression with patient and answered all questions. At this time, the evidence for any other entities in the differential is insufficient to warrant any further testing or ED observation. This was explained as well. Advisory was given that persistent or worsening symptoms require further evaluation. I confirmed the understanding of this discussion. Transportation Maintenance Worker disclaimer Much of this encounter note is an electronic director telecommunications spoken language to printed text. Electronic director telecommunications of the spoken language may permit errors. Although I have reviewed the note, some errors may still exist.
[2024-05-25] MEDS: ASPIRIN 81MG CHEWABLE TABLET 324 MG PO (20:02)
[2024-05-25 20:06] LABS: Basophils # 0.1 K/mm3 (0-0.2); Basophils % 1.3 % (0.1-2.0); Eosinophils % 0.3 % (0.1-12.0); Hematocrit 46.6 % (37.0-47.0); Hemoglobin 15.3 g/dL (12.2-16.2); Lymphocytes # 1.6 K/mm3 (0.7-4.5); Mean Corpuscular HGB Conc 32.9 g/dL (31.8-35.4); Mean Corpuscular Hemoglobin 30.3 pg (27.0-31.2); Mean Corpuscular Volume 92.3 fl (81-99); Mean Platelet Volume 7.4 fl (7.4-10.4); Monocytes # 0.5 K/mm3 (0.1-1.0); Monocytes % 4.6 % (1.7-9.3); Neutrophils # 8.5 K/mm3 (1.8-7.8); Neutrophils % 78.8 % (37.0-80.0); Platelet Count 288 K/mm3 (142-424); Red Blood Count 5.05 M/mm3 (4.20-5.40); Red Cell Distribution Width 14.4 % (11.5-17.5); White Blood Count 10.8 K/mm3 (4.8-10.8)
[2024-05-25 20:10] LABS: Albumin Level 4.4 g/dl (3.5-5.0); Chloride 105 mmol/L (98-107); Potassium 3.9 mmoL/L (3.5-5.1); Sodium 139 mmol/L (136-145)
[2024-05-25 20:12] LABS: Activated Partial Thrombo Time 26.8 seconds (22.8-30.6); Blood Urea Nitrogen 22 mg/dl (7-17); Creatinine Clearance Estimated 38 mL/min (50-200); Estimated Glomerular Filt Rate 69 ml/min (>60); GFR (African American) 84 ML/MIN (>60); INR 0.96 (0.9-1.1); Prothrombin Time 10.8 seconds (10.1-12.5)
[2024-05-25 20:13] LABS: Alanine Aminotransferase 20 U/L (12-78); Albumin/Globulin Ratio 1.5 (1.1-1.8); Alkaline Phosphatase 62 U/L (38-126); Anion Gap 12.9 mEq/L (5-15); Aspartate Amino Transferase 27 U/L (14-36); Calcium 9.9 mg/dl (8.4-10.2); Carbon Dioxide 25 mmol/L (22.0-30.0); Globulin 2.9 g/dL (1.3-3.2); Glucose 126 mg/dl (74-100); Total Protein,Serum 7.3 g/dl (6.3-8.2)
[2024-05-25 20:21] LABS: Lactate Venous 1.6 mmol/L (0.4-2.0); VBG Base Excess -1.7 mmol/L (-2.4-2.3); VBG HCO3 23.3 mmol/L (23-30); VBG Oxygen Saturation 56.1 % (50-70); VBG PCO2 39.2 mmol/L (35-51); VBG PH 7.39 mmol/L (7.31-7.41); VBG PO2 29.5 mmol/L (28-40); VBG Total CO2 24.5 mmol/L (23-27)
[2024-05-25 20:22] LABS: NT Pro Brain Natriuretic Pep. 150 pg/mL (0-450)
[2024-05-25 20:30] VITALS: BP 139/82; PULSE 84; RESP 15; O2SAT 98
[2024-05-25 20:36] LABS: D-Dimer 0.43 ug/mL (0.0-0.5)
[2024-05-25 20:40] LABS: Troponin I < 0.01 ng/ml (0.00-0.034)
[2024-05-25 20:48] VITALS: BP 139/82; PULSE 87; RESP 18; TEMP 36.6; O2SAT 97
[2024-05-25 20:48] LABS: HIV (1&2) Antibody Rapid NONREACTIVE (NONREACTIVE)
[2024-05-27 08:19] LABS: HCV Ab Non Reactive (Non Reactive)
== END 2024-05-25 20:51 | disposition home or self-care (01) ==
PROVIDERS: Emergency Provider Emergency Medicine; PCP Family Medicine
DX: R06.09 Other forms of dyspnea (principal); R06.02 Shortness of breath; R06.00 Dyspnea, unspecified
CPT/HCPCS: 71045; 80053; 82803; 83880; 84484; 85025; 85378; 85610; 85730; 86803; 87389; 93005; 99284

== ENCOUNTER 2024-06-16 06:37 | Outpatient (CLI) | payer MEDICARE, SELFPAY ==
--- NOTE | 2024-06-16 | CA_ITS ---
APPROVED REPORT Exam: Resting ECG Tech: Meghan Pearce Ht:5 ft 3 in Wt:110 lbs BSA: 1.50 m2 HR:78 bpm BP:152/7 mmHg Rhythm: NSR with lateral T wave inversions Risk Factors Family History: ECG Measurements Heart Rate 78 AXES Critical Notification Critical Value: No Conclusion During lexiscan pt experinced no symptoms. No arrhythmias noted. <1.5mm ST segment changes. Non diagnostic lexiscan stress. Electronically signed by : Roopa Reyes MD 06/18/2024 12:19:38
--- NOTE | 2024-06-16 06:45 | NM_ITS ---
APPROVED REPORT Exam: Nuclear Stress Test Indication: Chest pain, SOB, Family history Patient Location: Outpatient Stress Tech: Meghan Pearce [place] Tech:Anamaria Renner, ARRT, RT (R)(N) Ht: 5 ft 3 in Wt: 110 lbs Bra Size: 38B HR: 78 bpm BP: 152/78 mmHg BSA: 1.50 m2 TID: 0.81 BMI: 19.4 History: Chest pain, SOB, Family history Procedure: Patient received 0.4 mg of intravenous Lexiscan, resting heart rate 78 bpm, resting blood pressure 152/78 mmHg, with Lexiscan maximum heart rate achieved was 115 bpm which is % of the maximum predicted heart rate and blood pressure was 112/55 mmHg. With Lexiscan, patient denied any complaint of chest pain. Cardiac Stress and Resting SPECT Images: Cardiac Stress and Resting SPECT images were obtained using technetium 99m Myoview 23.9 mCi stress and 8.56 mCi at rest. Resting and stress imaging in supine and prone positions demonstrate no evidence of fixed or reversible perfusion defects. Gated imaging demonstrates normal global and regional LV systolic function. LVEF is calculated at 75%. Conclusion: No evidence of fixed or reversible perfusion defects. Gated imaging demonstrates normal global and regional LV systolic function. LVEF is calculated at 75%. Electronically signed by : Roopa Reyes MD 06/16/2024 15:49:58
--- NOTE | 2024-06-16 07:33 | CA_ITS ---
APPROVED REPORT EXAM: Comprehensive 2D, Doppler, and color-flow Echocardiogram Dry Plasterer: Gemini Pires RDCS Ht: 5 ft 3 in Wt: 110lbs BSA: 1.50 BP: 146/73 mmHg Indications: SOA,ABN EKG M-Mode Dimensions RVDd 0.99 cm (0.9-2.6) LA Diam 2.39 cm (1.9-4.0) LVDd 3.60 cm (3.5-5.7) LVDs 2.55 cm (3.5-5.7) IVSd 1.07 cm (0.6-1.1) PWd 0.61 cm (0.6-1.1) EF (Teich) 57.00% FS 29.20% EDV (Teich) 54.40 mL TAPSE 2.51 (<1.7) ESV (Teich) 23.40 mL LV Diastology E Decel Time 163 (160-240 msec) E/A Ratio 0.8 Mitral Valve MV E Max Ari. 76.0 (40-130 cm/s) MV A Velocity 101.0 (40-130 cm/s) E/A Ratio 0.74 MV PHT 48.0 ms Tricuspid Valve TR P. Velocity 306.00 cm/s RAP Estimate 10.00 mmHg RVSP 47.40 mmHg Left Ventricle The left ventricle is normal size. The left ventricular systolic function is normal. The left ventricular ejection fraction is within the normal range. There is increased LV wall thickness. There is normal LV segmental wall motion. The left ventricular diastolic function is normal. LVEF is 55%. Right Ventricle The right ventricle is normal size. The right ventricular systolic function is normal. Atria Left atrium is mildly dilated. Right atrium is mildly dilated. There is no Doppler evidence of interatrial shunt. Aortic Valve The aortic valve is mildly thickened. There is no aortic valvular stenosis. Trace aortic regurgitation. Mitral Valve The mitral valve leaflets are mildly thickened. No evidence of mitral valve stenosis. Mild mitral regurgitation. Tricuspid Valve Tricuspid valve is grossly normal in structure and function. Moderate tricuspid regurgitation. RVSP is 35 mmHg + RA pressure. Pulmonic Valve The pulmonary valve is normal in structure. Trace pulmonic regurgitation. Great Vessels The aortic root is normal in size. The ascending aorta is not well-visualized. The IVC is not well-visualized. Pericardium There is no pericardial effusion. Other Information Study Quality: Fair Conclusion Normal biventricular systolic function. Mild biatrial dilation. Moderate TR. Mild MR. RVSP 35 mmHg + RA pressure. Electronically signed by : Roopa Reyes MD 06/22/2024 03:11:24
[2024-06-16] MEDS: ISOTOPE MYOVIEW (PER STUDY) 1 DOSE IV (08:58)
[2024-06-16] MEDS: SODIUM CHLORIDE 0.9% 10ML SYR (RAD ONLY) 10 ML IV ×2 (08:58)
[2024-06-16] MEDS: REGADENOSON 0.4MG/5ML SYRINGE 0.4 MG IV (08:58)
== END 2024-06-16 23:59 | disposition home or self-care (01) ==
LOC: RAD 06:38
PROVIDERS: PCP Family Medicine; Visit Provider Internal Medicine
DX: R94.31 Abnormal electrocardiogram [ECG] [EKG] (principal); I10 Essential (primary) hypertension; R06.09 Other forms of dyspnea
CPT/HCPCS: 78452; 93017; 93018; 93306; A9502; J2785

== ENCOUNTER 2024-09-15 07:47 | Outpatient (RCR) | payer MEDICARE, SELFPAY ==
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
== END 2024-09-15 23:59 | disposition home or self-care (01) ==
LOC: PT 07:47
PROVIDERS: PCP Family Medicine; Visit Provider Family Medicine
DX: I73.9 Peripheral vascular disease, unspecified (principal); S81.801A Unspecified open wound, right lower leg, initial encounter
CPT/HCPCS: 97163; 97597

== ENCOUNTER 2025-06-18 09:30 | Emergency (ER) | payer OTHER, MEDICARE, SELFPAY ==
[2025-06-18 09:42] VITALS: BP 164/77; PULSE 76; RESP 16; TEMP 36.6; O2SAT 98; BMI 19.3
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
[2025-06-18 09:48] VITALS: BP 155/76; PULSE 56; O2SAT 96
--- OUTSIDE RECORDS SUMMARY | 2025-06-18 09:50 | XMS_ITS | Clinical Summary ---
Author Organization [facility] Address [address] [place] [address] Care Team Providers Care Boarding Specialist Name Role Phone Kanwal Rashid DELFINA Primary Care Provider [phone] Allergies Active Allergy Reactions Criticality Noted Date Comments Codeine GI Intolerance 06/23/2017 Medications GABAPENTIN PO Take by mouth. Active DULOXETINE HCL PO Take by mouth. Active Social History Tobacco Use Types Packs/Day Years Used Date Smoking Tobacco: Never Abuse Screen Answer Date Recorded Unsafe at Home or Work/School Not on file Feels Threatened by Someone? Not on file 06/2023 Does Anyone Keep You from Co ntacting Others or Doint Things Outside the Home? Not on file 05/23/2023 Physical Sign of Abuse Present Not on file 1 Housing Stability Answer Date Recorded Current Living Arrangements Not on file 05/13 Potentially Unsafe Housing Conditions Not on nicolle e 05/23/2023 Family and Community Support Answer Gavino e Recorded Help with Day-to-Day Activities Not on file 05/23/2023 Lonely or Isolated Not on file 05/23/2023 Employment Answer Date Recorded Do you want help finding or keeping work or a paty b? Not on file 05/23/2023 Disabilities Answer Date Recorded Concentrating, Remembering, or Making Decisions Difficulty Not on file 05/23/2023 Doing Errands Independently Difficulty Not on fi le 05/23/2023 Education Answer Date Recorded Help with school or training? Not on file Preferred Language Not on file 05/23/2023 Comments Unknown Sex and Gender Information Value Date Recorded Sex Assigned at Not on file Legal Sex Female 5:55 PM EST Gender Identity Not on file Sexual Orientation Not on file Last Filed Vital Signs Vital Sign Reading Time Taken Comments Blood Pressure - - Pulse 104 06/23/2017 6:18 PM EST Temperature 36.9 C (98.4 F) 06/23/2017 6:18 PM EST Respiratory Rate 18 06/23/2017 6:18 PM EST Oxygen Saturation 96% 06/23/2017 6:18 PM EST Inhaled Oxygen Concentration - - Weight 64.9 kg (143 lb) 06/23/2017 6:18 PM EST Height 160 cm (5' 3 ) 06/23/2017 6:18 PM EST Body Mass Index 25.33 06/23/2017 6:18 PM EST Plan of Treatment Health Maintenance Due Date Last Done Comments DXA SCAN 1945 TDAP/TD VACCINES (1 - Tdap) 1962 COLOGUARD 1988 COLON CANCER SCREENING 5 YEAR SIGMOIDOSCOPY 1988 COLONOSCOPY [address] SCREENING 1988 [address] COLONOGRAPHY 1988 FECAL OCCULT BLOOD TEST 1988 FIT Testing (1 year) 1988 Pneumococcal Vaccine 50+ (1 of 1 - PCV) 1993 ZOSTER VACCINE (1 of 2) 1993 ANNUAL PHYSICAL 06/23/2017 RSV Vaccine - Adults (1 - 1-dose 75+ series) 8 INFLUENZA VACCINE 03/13/2025 COVID-19 Vaccine ( - 2023- season) 2025 Insurance MEDICARE A [employer] Member Subscriber Plan / Payer (Ef fective 2008-Present) Name:Massiel Esquivel Member ID:[id number] Relation to Subscriber:Self Name:Massiel Esquivel Subscriber ID:[id number] Payer ID:[id number] Group ID:Not on file Type:Not on file Address: [address] [employer] Care Teams Boarding Specialist Relationship Specialty Start Date End Date Kanwal Rashid APRN [address] [place] [id number] PCP - General Family Medicine 06/23/17
--- OUTSIDE RECORDS SUMMARY | 2025-06-18 09:50 | XMS_ITS | Clinical Summary ---
Author Organization Healthcare Address [address] [place] [address] Care Team Providers Care Advanced Manufacturing Consultant Name Role Phone Jong Iglesias MD Primary Care Provider [phone] Allergies Active Allergy Reactions Criticality Noted Date Comments Codeine Diarrhea Low 06/23/2017 Medications gabapentin (Neurontin) 600 MG tablet 2 Active DULoxetine (Cymbalta) [address] capsule duloxetine 60 mg capsule,delayed release TAKE 1 CAPSULE BY MOUTH ONCE DAILY Active Eye Patch miscIndications :Binocular vision disorder with diplopia,Altern ating esotropia 1 Units 1 (one) time each day if needed (for significant double vision). 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 Hx. Social History Tobacco Use Types Packs/Day Years Used Date Smoking Tobacco: Never Passive Smoke Exposure: Never Tobacco Cessation:Counseling Given: No Alcohol Use Standard Drinks/Week Comments Never 0 (1 standard drink = 0.6 oz pur e alcohol) Comments Unknown Sex and Gender Information Value Date Recorded Sex Assigned at Not on file Legal Sex Female 6:31 PM EDT Gender Identity Not on file Sexual Orientation Not on file Last Filed Vital Signs Vital Sign Reading Time Taken Comments Blood Pressure 137/84 02/08/2024 12:49 PM EDT Pulse 65 02/08/2024 12:49 PM EDT Temperature 36.8 C (98.2 F) 02/08/2024 12:45 PM EDT Respiratory Rate - - Oxygen Saturation - - Inhaled Oxygen Concentration - - Weight 49.8 kg (109 lb 12.6 oz) 024 12:45 PM EDT Height - - Body Mass Index - - Plan of Treatment Health Maintenance Due Date Last Done Comments [facility]-Bone Density Scan 1945 [facility]-Depression Screening 1943 [facility]-Medicare Annual Wellness (AWV) 1945 [facility]-/Child/Adol SDOH Screenings 1943 [facility]- SDOH Screenings 1961 [facility]-Adult SDOH Screenings 1961 [facility]-Zoster Vaccines (2 of 2) 08/23/2023 06/28/2023 [id number] Vaccine ( - season) 2025 06/28/2023, 05/06/2022, 06/02/2021, Additional history exists [facility]-Influenza Vaccine (#1) 04/13/202505/12, 05/06/2022, 05/09/2021, Additional history exists [facility]-DTaP,Tdap,and Td Vaccines (2 - Td or Tdap) 03/14/2031 03/14/2021, 10/16/1996 [facility]-Hepatitis A Vaccines Aged Out 05/22/2018 No longer eligible based on patient's age to complete this topic [facility]-Pneumococcal Vaccine: 50+ Years Completed 05/26/2019, 06/22/2018, 05/26/2017 [facility]-RSV Vaccine: 60+ Years or Completed 06/28/2023 HPV Vaccines Aged Out No longer eligi ble based on patient's age to complete this topic [facility]-HIB Vaccines Aged Out No longer e ligible based on patient's age to complete this topic [facility]-IPV Vaccines Aged Out No longer e ligible based on patient's age to complete this topic [facility]-Rotavirus Vaccines Aged Out No lo nger eligible based on patient's age to complete this topic Insurance MEDICARE [facility] Care Teams Advanced Manufacturing Consultant Relationship Specialty Start Date End Date Jong Iglesias MD [address] [place] [address] [place] [id number] PCP - General Internal Medicine 05/23/22
--- OUTSIDE RECORDS SUMMARY | 2025-06-18 09:50 | XMS_ITS | Data Portability ---
Author Organization [facility] JONATHAN ParkerS [place] CLOSED Address [address] [place] [address] Care Team Providers Care Training Representative Name Role Phone DORY GONZALES Neurologist [phone] JONES COCHRAN Primary Care Provider Assessment Encounter Date Assessment Date Assessment LastModified by Organization Details LastModified Time 08/20/2020 08/20/2020 Severe chronic polyneuropathy . She has been stable. WIll make no change to medications. Encouraged her to find PCP for routine care. f/u [email or web address] Not available 09/06/2020 20:13:32 03/29/2022 03/29/2022 Chronic severe polyneuropathy . Will continue same medications Discussed gait precautions. [email or web address] Not available 05/22/2022 10:46:11 10/06/2022 10/06/2022 1. Chronic neuropathy 2. Diplopia. Will continue same meds for neuropathy. Will arrange for workup for diplopia. [email or web address] Not available 10/22/2022 21:16:32 10/14/2024 10/14/2024 Chronic severe axonal polyneuropathy . She has been reasonably stable. Refilled medications f/u several mos [email or web address] Not available 10/14/2024 18:38:49 Plan of Treatment Reminders Order Date Submit Date Provider Last Modified By Organization Details Last Modified Time Details Appointments NEUROLOG Y RECHECK 2025 11:00A M DORY GONZALES MD Not available Not available Not available Lab acetylch oline receptor -binding Ab, serum 2022 023 [email or web address] [facility], [address] [place] [address], [phone], 10/13/2022 08:25:30 acetylch oline receptor -blockin g Ab, serum 2022 023 [facility], [address] [place] [address], [phone], 10/12/2022 19:02:04 TSH, serum or plasma 2022 023 [facility], [address] [place] [address], [id number], 10/06/2022 13:26:16 T4, free, serum 2022 023 [facility], [address] [place] [address], [phone], 10/06/2022 13:26:15 Referral None recorded . Procedures None recorded . Surgeries None recorded . Imaging MRI, brain, w/wo contrast 2022 023 [facility] ([facility] [address], [place], [address], 10/06/2022 12:10:33 Medication Orders gabapent in 600 mg tablet 2024 025 [facility], [address] [place], [address], 10/14/2024 18:38:31 duloxeti ne 60 mg capsule, delayed release [email or web address] [facility], [address] [place], [address], 10/14/2024 17:03:54 duloxeti ne 60 mg capsule, delayed release 2023 024 [facility], [address] [place], [address], 10/11/2023 11:43:39 gabapent in 600 mg tablet 2022 023 [facility], [address] [place], [address], 10/13/2022 12:50:59 duloxeti ne 60 mg capsule, delayed release 2022 023 [facility], [address] [place], [address], 10/13/2022 12:50:55 gabapent in 600 mg tablet 2021 022 [facility], [address] [place], [address], 05/22/2022 10:45:21 Patient TargetsNo targets recorded. Patient InstructionsNo instructions recorded. Reason for Referral None Reported. Results Created Date Observation Date Name Description Value Unit Range Abnormal Flag Note LastModifiedBy Organization Detail LastModifiedTime 10/06/1910/06/2022 T4,FR EE T4,free 0.97 NG/dL 0.93-1 .70 normal Not Available [facility] [address] [place] [address], [phone], 10/06/2022 13:26:15 10/06/19 23 10/06/2022 TSH TSH 1.820 uIU/m L 0.270- 4.200 normal Not Available [facility] [address] [place] [address], [phone], 10/06/2022 13:26:16 10/06/19 23 10/12/2022 ACETY LCHL REC AB, BLOCK acetylchl rec Ab, block <15 %_inh ibiti on <15 normal TEST PERFO RMED AT: [facility] [address] [place] [address] Мария GARCÍA,PHD ,FAREED Not Available [facility] [address] [place] [address], [phone], 10/12/2022 19:02:04 10/06/19 23 10/19/2022 ACETY LCHL REC AB, BIND acetylchl rec Ab, bind <0.30 nmol/ L normal Refer ence Range s for Acety lchol ine Building Admin tor Jessica ng Antib joan: Negat helen: < or =0.30 nmol/ L Equiv ocal: 0.31- 0.49 nmol/ L Posit helen: > or =0.50 nmol/ L TEST PERFO RMED AT: [facility] [address] [place] [address] Мария GARCÍA,PHD ,FAREED Not Available [facility] [address] [place] [address], [phone], 10/19/2022 19:26:35 Result Notes None recorded. Problems Name Problem SNOMED Code Status Onset Date Resolution Date Notes Provider Name and Address Organization Details Recorded Time Neuropath y [id number] Active 2015 From Automated Load;Provi ankit: Dory Gonzales;Sta tus: Active Not Available [facility] 09:48:56 Problem Notes None recorded. Procedures Surgical History Date Name Laterality Status Provider Name and Address Organization Details Recorded Time 0 VAS - Art Dup - Lower Extremity completed DEEP HURLEY MD [address] [place] [address], [phone], [facility] 10/03/2019 11:54:55 8 Debridement Subcu Tissue completed SHAVON JONES DPM [address] [place] [address], [phone], [facility] 08/29/2017 14:10:25 8 Debridement Subcu Tissue completed SHAVON JONES DPM [address] [place] [address], [phone], [facility] 08/20/2017 17:21:14 procedure on ankle completed Avelina Guerrero [facility] 03/29/2022 11:08:54 Imaging Results None recorded. Procedure Notes None recorded. Medical Equipment None Reported. Allergies Allergen ID Allergen Name Allergen Category Reaction Reaction Severity Criticality Documentation Date Start Date Code Code System Note Provider Name and Address Organization Details Recorded Time 530457 codeine medicatio n Not available Not available Not available 03/29/2022 2670 RxNorm Avelina Cesar [facility] 11:08:21 Medications Name Sig Start Date Stop Date Status Note LastModified by Organization Details LastModified Time cyclobenz aprine 10 mg tablet TAKE 1 TABLET BY MOUTH EVERY 8 HOURS 10/06 completed Not Available Not Available Not Available gabapenti n 600 mg tablet TAKE 1 TABLET BY MOUTH 3 TO 4 TIMES DAILY 2024 active Not Available Not Available Not Avai lable doxycycli ne hyclate 100 mg capsule TAKE 1 CAPSULE BY MOUTH TWICE DAILY FOR 7 DAYS 10/14 completed Not Available Not Available Not Available clindamyc in HCl 300 mg capsule 09/19 completed Not Available Not Available Not Available ibuprofen 800 mg tablet 08/01 completed Not Available Not Available Not Available tizanidin e 4 mg tablet 03/20 completed Not Available Not Available Not Available ondansetr on HCl 4 mg tablet 09/01 completed Not Available Not Available Not Available prednison e 5 mg tablet 03/20 completed Not Available Not Available Not Available penicilli n V potassium 500 mg tablet 08/20 completed Not Available Not Available Not Available ciproflox acin 500 mg tablet 09/01 completed Not Available Not Available Not Available sulfameth oxazole 800 mg-trimet hoprim 160 mg tablet 09/19 completed Not Available Not Available Not Available tramadol 50 mg tablet TAKE 1 TABLET BY MOUTH EVERY 6 HOURS 10/06 completed Not Available Not Available Not Available amitripty line 50 mg tablet 03/20 completed Not Available Not Available Not Available oxycodone -acetamin ophen 5 mg-325 mg tablet 10/06 completed Not Available Not Available Not Available hydrocodo ne 7.5 mg-acetam inophen 325 mg tablet 09/01 completed Not Available Not Available Not Available cephalexi n 500 mg capsule TAKE 1 CAPSULE BY MOUTH EVERY 6 HOURS FOR 7 DAYS 08/01 completed Not Available Not Available Not Available diclofena c sodium 75 mg tablet,de layed release 03/20 completed Not Available Not Available Not Available Neurontin 400 mg capsule Three times a day 09/01 completed Duration : 30 days;Quoc quency: tid;Medi cation Descript ion: gabapent in; Dosage:1 ; Route:or al; refills: 11; Quantity :90 capsule Not Available Not Available Not Available hydrochlo rothiazid e 25 mg tablet 03/20 completed Not Available Not Available Not Available polyethyl sam glycol 3350 17 gram/dose oral powder 08/17 completed Not Available Not Available Not Available zolpidem 10 mg tablet TAKE 1 TABLET BY MOUTH ONCE DAILY AT BEDTIME 08/01 completed Not Available Not Available Not Available doxycycli ne hyclate 100 mg tablet 09/01 completed Not Available Not Available Not Available amoxicill in 500 mg-potass ium clavulana te 125 mg tablet TAKE 1 TABLET BY MOUTH THREE TIMES DAILY 10/14 completed Not Available Not Available Not Available Allergy Relief (diphenhy dramine) 25 mg capsule TAKE 1 CAPSULE BY MOUTH EVERY 6 HOURS NEEDED 10/06 completed Not Available Not Available Not Available duloxetin e 60 mg capsule,d elayed release TAKE 1 CAPSULE BY MOUTH ONCE DAILY 2024 active Not Available Not Available Not Avai lable Havrix (PF) 1,440 GARRY unit/mL intramusc ular syringe 09/19 completed Not Available Not Available Not Available Fluzone High-Dose Quad (PF) 240 mcg/0.7 mL IM syringe PHARMACI ST ADMINIST ERED IMMUNIZA TION ADMINIST ERED AT TIME OF DISPENSI NG 08/20 completed Not Available Not Available Not Available Paxlovid 300 mg (150 mg x 2)-100 mg tablets in a dose pack TAKE 3 TABLETS TOGETHER (TWO 150 MG NIRMATRE LVIR TABLETS AND ONE 100 MG RITONAVI R TABLET) BY MOUTH TWICE DAILY FOR 5 DAYS. active Not Available Not Available No t Available Vitals Date Recorded Body height Body mass index (BMI) Body weight Heart rate Systolic And Diastolic Provider Name and Address Organization Details Last Updated DateTime 08/20/2020 160.02 cm 22.3 kg/m2 69783.64 g 104 /min 140/88 mm[Hg] Ivett Gimenez [facility] 10:42:39 Date Recorded Body height Body mass index (BMI) Body weight Heart rate Oxygen saturation Oxygen saturation in Arterial blood by Pulse oximetry Systolic And Diastolic Provider Name and Address Organization Details Last Updated DateTime 3 160.02 cm 20.6 kg/m2 07992.5 1 g 87 /min 96 % 96 % 142/76 mm[Hg] Jones Wilson [facility] 3 10:59:55 Date Recorded Body height Body mass index (BMI) Body weight Heart rate Oxygen saturation Oxygen saturation in Arterial blood by Pulse oximetry Systolic And Diastolic Provider Name and Address Organization Details Last Updated DateTime 4 160.02 cm 19.8 kg/m2 07572.3 5 g 72 /min 96 % 96 % 132/80 mm[Hg] [facility] 4 11:27:32 Date Recorded Body weight Heart rate Oxygen saturation Oxygen saturation in Arterial blood by Pulse oximetry Systolic And Diastolic Provider Name and Address Organization Details Last Updated DateTime 5 36929.7 9 g 125 /min 97 % 97 % 130/82 mm[Hg] [facility] 5 11:39:54 Date Recorded Body weight Oxygen saturation Oxygen saturation in Arterial blood by Pulse oximetry Heart rate Systolic And Diastolic Provider Name and Address Organization Details Last Updated DateTime 2 03161.0 1 g 96 % 96 % 82 /min 126/80 mm[Hg] Avelina Guerrero [facility] 2 11:10:02 Social History Question Answer Notes LastModified by Organizat ion Details LastModified Time Tobacco Smoking Status Never Smoker Ivett Gimenez [facility] 09/01/2016 07:57:10 What Is Your Level Of Caffeine Consumption? Moderate [email or web address] Information not available 10/14/2024 Live Alone Or With Others? With Others Information not available 09/01/2016 Marital Status Informat ion not available 09/01/2016 What Was The Date Of Your Most Recent Tobacco Screening? 03/29/2022 [email or web address] Information not available 03/29/2022 Sex: Unknown Functional Status Question Answer Note LastModified by Organization D etails LastModified Time What is your level of alcohol consumption? 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 Family History Relationship Description Onset Age of this Age Resolved Age Notes LastModified by Organization Details LastModified Time Father No current problems or disability [email or web address] Not available 07:57:01 Mother No current problems or disability [email or web address] Not available 07:57:01 Medical History Condition Response Diabetes N Anxiety Disorder N Arthritis N Parkinson's Disease N Tuberculosis N Alzheimer's N Cancer N Migraines N Stroke N Depression N Glaucoma N High Cholesterol N Heart Disease N Hypertension N Neurological Problems Y Gynecological HistoryNo gynecological history recorded. Obstetrics History GPAL:G 0 P 0 0 0 0 Past Encounters Encounter ID Performer Location Encounter Start Date Encounter Closed Date Diagnosis/Indication Diagnosis SNOMED-CT Code Diagnosis ICD10 Code Diagnosis IMO Codes Diagnosis Note [id number] DORY GONZALES MD NEUROLOGY [facility] CL[facility] [address] [place] [address] 09/01/2016 09:21:38 09/01/2016 14:20:43 Neuropathy 811066869 G62.9 She will continue the same medicines. She may benefit from another AFO to help with the foot drop and to stabilize the apparent ankle deformity; she may be developing a Charcot foot. I suggested that but she wants to think about this. If interested , she will let me know. f/u in one year otherwise. [id number] DORY GONZALES MD NEUROLOGY [facility] CLOS[facility] [address] [place] [address] 03/20/2017 13:34:28 03/21/2017 07:50:45 Neuropathy 432361293 G62.9 [id number] DORY GONZALES MD NEUROLOGY [facility] CLOS[facility] [address] [place] [address] 08/17/2017 09:27:13 08/17/2017 10:17:00 Neuropathy 667640795 G62.9 Ulcer of toe 549183075 L 97.858 [id number] SHAVON JONES DPM P[facility] [address] [place] [address] 08/20/2017 10:35:55 08/20/2017 11:37:45 Ulcer of toe 501908689 L97.509 Peripheral vascular disease 340670798 I73.9 Neuropathy 396956580 G62 .9 [id number] SHAVON JONES DPM PODIATRY [address] ,[address] [place] [address] 08/29/2017 09:30:10 08/29/2017 10:36:46 Ulcer of toe 577060850 L97.509 Peripheral vascular disease 727383558 I73.9 Neuropathy 626034307 G62 .9 [id number] SHAVON JONES DPM PODIATRY [address] ,[address] [place] [address] 09/14/2017 09:06:59 09/14/2017 10:30:29 Ulcer of toe 045378532 L97.509 Peripheral vascular disease 701503905 I73.9 Neuropathy 624754153 G62 .9 [id number] SHAVON JONES DPM PODIATRY [address] [place] [address] 10/12/2017 08:51:16 10/12/2017 09:34:53 Ulcer of toe 860385055 L97.509 Peripheral vascular disease 423234305 I73.9 Neuropathy 644067292 G62 .9 Hammer toe 670620359 M20 .41 [id number] DORY GONZALES MD NEUROLOGY [facility] [address] [facility] [place] [address] 08/16/2018 08:53:28 08/16/2018 09:52:43 Neuropathy 094611112 G62.9 Headache 51894186 R51 Neck pain 41364043 M54.2 Falls 093096887 R29.6 [id number] DORY GONZALES MD [facility]UROLOGY [facility] [address] [facility] [place] [address] 09/19/2019 11:04:18 09/19/2019 12:04:41 Neuropathy 426852175 G62.9 Pain in bi lateral lower legs 9807537885 8507918 M79.661 Right foot drop 69802876 01 47188 M21.133 [id number] DEEP HURLEY MD [facility] CL[facility] [address] [place] [address] [place] [address] 10/03/2019 10:55:43 10/07/2019 08:05:03 Pain in lower limb 05425445 M79.536 [id number] DORY GONZALES MD [facility]UROLOGY [facility] [address] [place] [address] 08/20/2020 10:35:43 08/20/2020 11:10:50 Neuropathy 915260978 G62.9 [id number] DORY GONZALES MD NEUROLOGY [facility] [address] [place] [address] 03/29/2022 09:58:56 03/29/2022 12:02:29 Neuropathy 651552822 G62.9 [id number] DORY GONZALES MD NEUROLOGY [facility] [address] [place] [address] 10/06/2022 10:52:44 10/23/2022 14:36:06 Diplopia 48962927 H53.2 Neuropathy 719928536 G62 .9 [id number] DORY GONZALES MD NEUROLOGY [facility] [address] [place] [address] 10/11/2023 10:20:53 10/27/2024 14:49:13 Neuropathy 321525233 G62.9 Abnormal gait 66417240 R 26.9 [id number] DORY GONZALES MD NEUROLOGY [facility] [address] [place] [address] 1 10/14/2024 10:44:50 10/15/2024 05:24:14 Neuropathy 226881856 G62.9 Health Concerns Section Related Observation LastModified by Organization Detai ls LastModified Time None Recorded Concern Status LastModified by Organization Details LastModified Time None Recorded Advance Directives Directive None Recorded Payers Insurance Date Sequence Insurance Name Policy Number Policy Dudley Covered Member ID Dudley Member ID Guarantor Name 10/14/2024 [employer] - [employer] ASSIGNED (MEDICARE DME REGION B) Massiel A Esquivel [id number] Massiel A Esquivel 10/14/2024 2 [employer] (MEDICARE SUPPLEMENT) Massiel A Esquivel Massiel A Esquivel 10/14/2024 1 [place] Massiel A Esquivel [id number] Massiel A Esquivel 10/14/2024 2 [employer] (MEDICARE SUPPLEMENT) Massiel Esquivel [id number] Massiel Esquivel 10/14/2024 1 [place] Massiel Esquivel [id number] Massiel Esquivel Notes Date Note Type Note Provider Name and Address Organization Details Recorded Time 08/20/2020 text/html She was seen about a year ago. She has been about the same with regard to neuropathy. Gabapentin and Cymbalta remain helpful with the pain. She has balance difficulty and uses cane or walker. She has a scooter which she does not use. DORY GONZALES MD [address] [place] [address], [phone], [facility] 09/06/2020 20:13:56 03/29/2022 text/html She was seen early last year. She fell and broke right ankle in August and had surgery for this.There were at least two other falls over the summer, including on her hip. Had X-ray of hip. She remains on gabapentin QID and Cymbalta.These control pain fairly wellNumbness is about the same, distal legs, knees down. Uses cane outside the house, sometimes inside. She is seeing Dr. Iglesias now. DORY GONZALES MD [address] [place] [address], [address], [facility] 05/22/2022 10:46:24 10/06/2022 text/html She was seen six mos ago. She has been about the same with regard to neuropathy.She is unsteady and uses walker in the house, or uses cane at times. No falls. She went to an eye doctor who wanted her to have a CT scan and some blood work.This is in regard to diplopia - an issue for ?six mos. Vertical diplopia, more at distance than up close, comes and goes. 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 DORY GONZALES MD [address] [place] [address] [place], [address], [facility] 10/22/2022 21:16:47 10/11/2023 text/html She was seen about a year ago. She has been stable She fell and had hematoma on head and had gosia. head CT done. There have been other falls. She DORY GONZALES MD [facility] [place], [address], [facility] 10/14/2024 11:54:48 10/14/2024 text/html She was seen a year ago. She has been reasonably stable. uses walkerThere have been no falls. Remains on duloxetine and gabapentin Neuropathic pain is reasonably controlled with medications.If she does not take her medicine, she is incoherent There is plan for right knee replacement in the near future.Seen by ortho last week DORY GONZALES MD [facility] [place], [address], [facility] 10/14/2024 18:39:02 OBGyn Episode No OBEpisode recorded.
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
[2025-06-18 10:01] VITALS: BP 151/82; PULSE 70; O2SAT 98
[2025-06-18] MEDS: LIDOCAINE 5% TRANSDERMAL PATCH 1 EACH TD (10:10)
[2025-06-18] MEDS: ACETAMINOPHEN 325MG TAB 650 MG PO (10:10)
[2025-06-18 10:30] VITALS: BP 155/76; PULSE 62; O2SAT 97
[2025-06-18 11:00] VITALS: BP 165/83; PULSE 54; O2SAT 100
[2025-06-18 12:11] VITALS: BP 173/83; PULSE 54; RESP 16; TEMP 36.6; O2SAT 95
== END 2025-06-18 12:18 | disposition home or self-care (01) ==
PROVIDERS: Emergency Provider Student in an Organized Health Care Education/Training Program; PCP Family Medicine
DX: M54.2 Cervicalgia (principal); V49.50XA Passenger injured in collision with unspecified motor vehicles in traffic accident, initial encounter
CPT/HCPCS: 70450; 72125; 99284

== ENCOUNTER 2025-08-11 14:39 | Outpatient (CLI) | payer OTHER, SELFPAY ==
--- OUTSIDE RECORDS SUMMARY | 2025-08-11 14:42 | XMS_ITS | Clinical Summary ---
Author Organization [facility] Address [address] [place] [address] Care Team Providers Care Administrative Services Coordinator Name Role Phone Kanwal Rashid DELFINA Primary Care Provider [phone]- [phone] Allergies Active Allergy Reactions Criticality Noted Date [...] Payer (Ef fective 2008-Present) Name:Massiel Esquivel Member ID:[id number] Relation to Subscriber:Self Name:Massiel Esquivel Subscriber ID:[id number] Payer ID:[id number] Group ID:Not on file Type:Not on file Address: [address] [employer] Care Teams Administrative Services Coordinator Relationship Specialty Start Date End Date Kanwal Rashid APRN [address] [place] [address] PCP - General Family Medicine 06/23/17
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
--- OUTSIDE RECORDS SUMMARY | 2025-08-11 14:42 | XMS_ITS | Clinical Summary ---
Author Organization Healthcare Address [address] [place] [address] Care Team Providers Care Pipe Foreman Name Role Phone Jong Iglesias MD Primary Care Provider [phone] Allergies Active Allergy Reactions Criticality Noted Date [...] UKY-Zoster Vaccines (2 of 2) 08/23/2023 06/28/2023 [id number] Vaccine ( - season) 2025 06/28/2023, 05/06/2022, [...] 60+ Years or Completed 06/28/2023 HPV Vaccines (No Doses Required) Completed UKY-HIB Vaccines Aged Out No longer e ligible based on patient's age to complete this topic UKY-IPV Vaccines Aged Out No longer e ligible based on patient's age to complete this topic UKY-Rotavirus Vaccines Aged Out No lo nger eligible based on patient's age to complete this topic Insurance MEDICARE [facility] Care Teams Pipe Foreman Relationship Specialty Start Date End Date Jong Iglesias MD [facility] [id number] PCP - General Internal Medicine 05/23/22
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
== END 2025-08-11 23:59 | disposition home or self-care (01) ==
LOC: RAD 14:39
PROVIDERS: PCP Family Medicine; Visit Provider Family Medicine
DX: M51.369 Other intervertebral disc degeneration, lumbar region without mention of lumbar back pain or lower extremity pain (principal); M51.26 Other intervertebral disc displacement, lumbar region; M41.9 Scoliosis, unspecified; K44.9 Diaphragmatic hernia without obstruction or gangrene; M51.34 Other intervertebral disc degeneration, thoracic region; M43.8X2 Other specified deforming dorsopathies, cervical region; M50.31 Other cervical disc degeneration, high cervical region; S13.4XXA Sprain of ligaments of cervical spine, initial encounter; M79.18 Myalgia, other site; V89.2XXA Person injured in unspecified motor-vehicle accident, traffic, initial encounter
CPT/HCPCS: 72141; 72146; 72148